=== PATIENT | male | born 1970 | race Caucasian/White ===

== ENCOUNTER 2024-11-06 20:06 | Emergency (ER) | payer OTHER ==
[~2024-11-06] VITALS: Ht 175.3 cm; Wt 108.9 kg
[2024-11-06 21:44] LABS: BASOPHILS ABSOLUTE AUTO 0.06 K/mm3 (0.00-0.23); BASOPHILS PERCENT AUTO 1 % (0-2); EOSINOPHILS ABSOLUTE AUTO 0.33 K/mm3 (0.00-0.68); EOSINOPHILS PERCENT AUTO 5 % (0-6); Hematocrit 44.8 % (37.0-53.0); Hemoglobin 15.2 g/dL (13.5-17.5); IMMATURE GRAN ABSOLUTE AUTO 0.02 K/mm3 (0.00-0.10); IMMATURE GRAN PERCENT AUTO 0 % (0-1); LYMPHOCYTES ABSOLUTE AUTO 1.65 K/mm3 (0.84-5.20); LYMPHOCYTES PERCENT AUTO 23 % (21-46); MONOCYTES ABSOLUTE AUTO 1.26 K/mm3 (0.16-1.47); MONOCYTES PERCENT AUTO 17 % (4-13); Mean Corpuscular HGB Conc 33.9 g/dL (31.5-36.5); Mean Corpuscular Volume 94 fL (80-100); NEUTROPHILS ABSOLUTE AUTO 3.98 K/mm3 (1.96-9.15); NEUTROPHILS PERCENT AUTO 55 % (41-73); NRBC ABSOLUTE 0.00 K/mm3 (0.00-0.02); NRBC Auto 0.0 /100 WBC (0.0-0.2); Platelet Count 276 K/mm3 (150-400); RDW Coefficient Variation 13.3 % (11.7-14.2); RDW Standard Deviation 46.5 fL (35.1-46.3)
[2024-11-06 22:00] LABS: Alanine Aminotransfer (ALT/SGP 51.0 U/L (12-78); Albumin, Blood 3.2 g/dL (3.4-5.0); Albumin/Globulin Ratio 0.7 (0.8-1.8); Anion Gap 7.0 mmol/L (3-11); Aspartate Aminotrans (AST/SGOT 34.0 U/L (12-37); Bilirubin, Total 0.3 mg/dL (0.1-1.0); Blood Urea Nitrogen 16.0 mg/dL (8-24); CO2, Blood 30.0 mmol/L (21-32); Calcium, Blood 9.2 mg/dL (8.5-10.1); Chloride, Blood 105.0 mmol/L (98-108); Creatinine, Blood 1.05 mg/dL (0.60-1.20); Globulin, Blood 4.6 g/dL (2.2-4.0); Glucose, Blood 96.0 mg/dL (70-99); Potassium, Blood 3.8 mmol/L (3.5-5.5); Sodium, Blood 138.0 mmol/L (136-145); Total Protein, Blood 7.8 g/dL (6.4-8.2)
[2024-11-06] MEDS ORDERED: Dexamethasone Sod Phos 10 MG/ML 1ML VIAL IV ONE (22:20)
[2024-11-06] MEDS ORDERED: AZIT250 PO ×2 (22:22→22:24)
[2024-11-06] MEDS ORDERED: PRED20 PO ×2 (22:22→22:24)
[2024-11-06] MEDS ORDERED: ALBU90OI INH ×2 (22:22→22:24)
== END 2024-11-06 22:28 | disposition home or self-care (01) ==
LOC: ER 20:06
PROVIDERS: Student in an Organized Health Care Education/Training Program
DX: J45.901 Unspecified asthma with (acute) exacerbation (principal)
CPT/HCPCS: 71046; 80053; 85025; 93005; 93010; 96374; 99283-25; J1100

== ENCOUNTER 2025-01-09 11:21 | Emergency (ER) | payer OTHER ==
[~2025-01-09] VITALS: Ht 175.3 cm; Wt 111.1 kg
[~2025-01-09 11:21] MED LIST: ALBU90OI INH; AZIT250 PO; PRED20 PO
[2025-01-09] MEDS ORDERED: Albuterol 2.5 MG/3 ML VIAL INH SCH (12:05)
[2025-01-09] MEDS ORDERED: Ipratropium/Albuterol SulF 2.5-0.5MG/3 ML Amp INH ONE (12:05)
[2025-01-09] MEDS ORDERED: ALBU90OI INH (12:06)
[2025-01-09] MEDS ORDERED: MONT10T PO (12:30)
[2025-01-09] MEDS ORDERED: TRELEGY ELLIPT1 EACH INH ×2 (12:30)
[2025-01-09] MEDS ORDERED: Prednisone20 MG PO (13:52)
[2025-01-10] MEDS ORDERED: HYDROmorphone HCl/Pf 1MG SYR IV PRN (11:40)
[2025-01-10] MEDS ORDERED: FentaNYL Citrate 50 MCG/ML 2 ML Injection IV PRN ×2 (11:40)
[2025-01-10] MEDS ORDERED: Metoclopramide HCl 5MG / ML 2ML Vial IV PRN (11:40)
[2025-01-10] MEDS ORDERED: Albuterol 2.5 MG/3 ML VIAL INH PRN (11:40)
[2025-01-10] MEDS ORDERED: Morphine Sulfate 4 MG/1 ML Injection IV PRN (11:40)
[2025-01-10] MEDS ORDERED: Ondansetron HCl 2 MG / ML 2ML Vial IV PRN (11:40)
== END 2025-01-09 14:38 | disposition home or self-care (01) ==
LOC: ER 11:21
DX: J45.901 Unspecified asthma with (acute) exacerbation (principal); Z79.51 Long term (current) use of inhaled steroids; Z79.899 Other long term (current) drug therapy; Z59.89 Other problems related to housing and economic circumstances
CPT/HCPCS: 96374; 99284-25; J2919